=== PATIENT | female | born 1985 | race Caucasian/White ===

== ENCOUNTER → 2017-09-11 12:28 | Outpatient (CLI) | payer OTHER, SELFPAY ==
--- NOTE | 2017-09-11 14:03 | NEURO ---
NCS and/or EMG Patient Report DATE OF SERVICE: 09/11/17 Sabra Segal is a 32-year-old female presents for electrodiagnostic examination of the left upper and left lower limb. She has a chief complaint of numbness and tingling in both arm and leg. Electrodiagnostic findings: Left median motor nerve demonstrates normal distal latency, amplitude and conduction velocity. Normal left ulnar motor response normal left peroneal and tibial motor responses. F waves and H reflexes are normal. Sensory responses in both the left arm and left leg are within normal limits. This includes testing of the left lateral femoral cutaneous nerve. On needle EMG, all muscles tested in the left upper and lower limb show no evidence of denervation with normal motor unit action potentials. Electrodiagnostic impression: This is a normal electrodiagnostic study of the left arm and left leg. There is no electrodiagnostic evidence for peripheral neuropathy, including carpal tunnel or cubital tunnel syndrome. There is no electrodiagnostic evidence for meralgia paresthetica. If there are any further questions, please do not hesitate to contact me.
== END ==
DX: R20.2 Paresthesia of skin (principal)
CPT/HCPCS: 95886; 95913

== ENCOUNTER → 2018-04-11 17:04 | Outpatient (CLI) | payer OTHER, SELFPAY ==
[2018-04-11 17:20] LABS: Absolute Neutrophil Count 3.9 X10^3/uL (2.0-7.7); Basophil# 0.01 X10^3/uL; Basophil% 0.2 % (0-1); Eosinophil# 0.03 X10^3/uL; Eosinophils% 0.5 % (0-5); Hematocrit 38.6 % (37-47); Hemoglobin 13.1 g/dl (12.0-15.0); Lymphocyte % 29.6 % (19-41); Mean Corp Hgb Conc 33.9 g/gl (32-36); Mean Corpuscular Volume 88.5 fL (81-99); Mean Platelet Vol. 10.3 fl (6.2-12.0); Monocyte# 0.36 X10^3/uL; Monocyte% 5.9 % (0-10); Neutrophil # 3.88 X10^3/uL (2.7-7.7); Neutrophil % 63.8 % (47-70); Platelet Count 209 K/mm3 (150-450); RBC Distribution Width CV 13.3 % (11.6-14.6); RBC Distribution Width SD 42.5 fl (35.1-43.9); Red Blood Count 4.36 M/mm3 (4.2-5.4); White Blood Count 6.1 K/mm3 (4.4-11.0)
[2018-04-11 17:23] LABS: POSITIVE COUNT NO; POSITIVE DIFFERENTIAL NO; POSITIVE MORPHOLOGY NO
== END ==
DX: D72.819 Decreased white blood cell count, unspecified (principal)
CPT/HCPCS: 85025

== ENCOUNTER → 2018-10-14 15:49 | Outpatient (CLI) | payer OTHER, SELFPAY ==
[2018-10-14 22:34] LABS: hCG Titer Quant., Serum 1 mIU/mL (<9 non-preg)
== END ==
DX: O03.9 Complete or unspecified spontaneous abortion without complication (principal)
CPT/HCPCS: 36415; 84702

== ENCOUNTER 2019-06-19 22:13 | Emergency (ER) | payer OTHER, SELFPAY ==
[2019-06-19 22:15] VITALS: BP 131/77; PULSE 84; RESP 20; TEMP 36.7; BMI 41.4
--- NOTE | 2019-06-19 22:45 | DCINST.ED_ITS ---
ED Disposition - Plan for ED Patient: Instructions: PHARYNGITIS, Strep (Confirmed) Referrals: [facility] Doctor,Out of [Primary Care Provider] -
--- NOTE | 2019-06-19 22:47 | ED.VISSUMM ---
- ER Visit Summary Date of Service: 06/19/19 Chief Complaint: Sore throat History of Present Illness: The patient is a 34 F presenting with sore throat. Patient states this started this morning. She has had painful swallowing but no difficulty swallowing. She did receive a flu shot this week. She denies fever. She has had mild rhinorrhea. Denies other complaints. 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 She states this was positive. Denies other complaints. Physical Examination: Vitals are stable. Patient is afebrile. Alert no acute distress. HEENT exam pharyngeal erythema and exudate. Uvula is midline. Neck is supple. No meningismus Lungs are clear and equal bilaterally. Heart is regular rate and rhythm. Extremities are unremarkable. Skin is warm and dry. No rash Remainder of exam is unremarkable. Emergency Department Course and Treatment: Patient was given Bicillin IM, Decadron. She is advised to follow-up with her primary care physician. Advised return to ED for worsening complaints. Disposition: Discharge home Impression: Pharyngitis This note was generated with [employer] dictation software. It may contain incorrect words, spelling, and punctuation that were not noted in review of the chart prior to signing ED Disposition - Plan for ED Patient: Instructions: PHARYNGITIS, Strep (Confirmed) Referrals: [facility] Doctor,Out of [Primary Care Provider] -
[2019-06-19] MEDS: dexAMETHasone 4 MG Tablet PO (22:54)
[2019-06-19] MEDS: Penicillin G Benzathine 1.2 MU/2 ML Syringe IM (22:54)
== END 2019-06-19 23:13 | disposition home or self-care (01) ==
LOC: ED 22:51
PROVIDERS: Emergency Provider Emergency Medicine
DX: J02.9 Acute pharyngitis, unspecified (principal)
CPT/HCPCS: 99283

== ENCOUNTER 2020-01-22 23:01 | Emergency (ER) | payer OTHER, SELFPAY ==
[2020-01-22 23:02] VITALS: BP 131/83; PULSE 108; RESP 18; TEMP 37.4; O2SAT 99; BMI 36.0
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
[2020-01-22] MEDS: Ketorolac 15 MG/ML Vial IM (23:35)
[2020-01-22 23:51] LABS: Mucous, Urine 0 SEEN /hpf (<or=2+)
[2020-01-22 23:53] LABS: Color, Urine Yellow (Yellow); Glucose, Dipstick Normal (Normal); Leukocyte Esterase-Dipstick 25 /ul (Negative); Nitrite-Dipstick Positive (Negative); Occult Blood-Urine 25 /ul (Negative); Protein-Dipstick 15 mg/dl (Negative); Urine Bilirubin Dipstick Negative (Negative); Urine Clarity Sl. Cloudy (Clear); Urine Urobilinogen Normal (Normal)
[2020-01-22 23:56] LABS: Internal QC Validated? YES +Cl - CLEAR BKGD; Pregnancy, Urine Negative Negative
[2020-01-22 23:58] LABS: Ketone-Dipstick 150 mg/dl (Negative)
[2020-01-23] LABS: Bacteria 3+ /hpf (None Seen); Squamous Epithelial Cells - UA 10-25 SEEN /hpf (5-10); White Blood Cells 25-50 SEEN /hpf (0-5)
[2020-01-23 00:01] LABS: Red Blood Cells-Urine 0-5 SEEN /hpf (0-5)
[2020-01-23] MEDS: 0.9% Normal Saline 1,000 ML 999 ML IV (00:42)
[2020-01-23] MEDS: Ceftriaxone 1 GM/50 ML BAG IV (00:49)
[2020-01-23 00:50] VITALS: BP 137/80; PULSE 96; RESP 16; TEMP 37.6; O2SAT 96
[2020-01-23 00:56] LABS: Absolute Lymphocyte Count 0.97 X10^3/uL (0.83-4.51); Absolute Neutrophil Count 7.4 X10^3/uL (2.0-7.7); Basophil# 0.02 X10^3/uL; Basophil% 0.2 % (0-1); Hematocrit 36.3 % (37-47); Hemoglobin 12.2 g/dL (12.0-15.0); Lymphocyte # 0.97 X10^3/ul (4.0); Lymphocyte % 10.6 % (19-41); Mean Corp Hgb Conc 33.6 g/dL (32-36); Mean Corpuscular Hgb 30.7 pg (27.0-32.0); Mean Corpuscular Volume 91.4 fL (81-99); Mean Platelet Vol. 10.1 fl (6.2-12.0); Monocyte# 0.68 X10^3/uL; Monocyte% 7.5 % (0-10); NRBC Flagged by Analyzer 0 % (0-5); Neutrophil # 7.42 X10^3/uL (2.7-7.7); Neutrophil % 81.4 % (47-70); Platelet Count 168 K/mm3 (150-450); RBC Distribution Width CV 13.2 % (11.6-14.6); RBC Distribution Width SD 44.2 fl (35.1-43.9); Red Blood Count 3.97 M/mm3 (4.2-5.4); White Blood Count 9.1 K/mm3 (4.4-11.0)
[2020-01-23 01:39] LABS: Anion Gap 7 (5-15); BUN 19 mg/dL (7-18); BUN/Creat Ratio 28.4 RATIO (10-20); Chloride 107 mmol/L (98-107); Creatinine, Serum 0.67 mg/dL (0.55-1.02); EST Glomerular Filtration Rate 107 mL/min (>60); Est Glom Filt Rate - Afr Amer 130 mL/min (>60); Estimated Creatinine Clearance 102.17 ml/min; Glucose 94 mg/dL (74-106); Potassium 3.9 mmol/L (3.5-5.1); Sodium Level 137 mmol/L (136-145)
[2020-01-23 01:56] VITALS: BP 128/66; PULSE 86; RESP 16; TEMP 37.2; O2SAT 99
== END 2020-01-23 02:35 | disposition home or self-care (01) ==
PROVIDERS: Emergency Provider Emergency Medicine
DX: N39.0 Urinary tract infection, site not specified (principal); M54.9 Dorsalgia, unspecified; E86.9 Volume depletion, unspecified; Z86.718 Personal history of other venous thrombosis and embolism
CPT/HCPCS: 80048; 81001; 81025; 85025; 96365; 96372; 99285; J7030; A4216

== ENCOUNTER → 2020-09-20 14:12 | Outpatient (CLI) | payer OTHER, SELFPAY ==
[2020-09-23 21:45] LABS: HPV APTIMA, High Risk Negative (Negative)
[2020-09-24 03:07] LABS: Chlamydia By Nucleic Acid AMP Negative (Negative)
[2020-09-24 08:45] LABS: Gonococcus By Nucleic Acid AMP Negative (Negative)
== END ==
PROVIDERS: Visit Provider Student in an Organized Health Care Education/Training Program
DX: Z12.4 Encounter for screening for malignant neoplasm of cervix (principal); Z11.3 Encounter for screening for infections with a predominantly sexual mode of transmission; Z32.01 Encounter for pregnancy test, result positive
CPT/HCPCS: 87491; 87591; 87624; 88175; G0145

== ENCOUNTER → 2020-09-28 11:43 | Outpatient (CLI) | payer OTHER, SELFPAY ==
[2020-09-28 13:45] LABS: Hematocrit 36.7 % (37-47); Hemoglobin 12.3 g/dL (12.0-15.0); Mean Corp Hgb Conc 33.5 g/dL (32-36); Mean Corpuscular Hgb 30.1 pg (27.0-32.0); Mean Platelet Vol. 10.4 fl (6.2-12.0); Platelet Count 161 K/mm3 (150-450); RBC Distribution Width CV 13.1 % (11.6-14.6); Red Blood Count 4.08 M/mm3 (4.2-5.4); White Blood Count 3.5 K/mm3 (4.4-11.0)
== END ==
PROVIDERS: Visit Provider Student in an Organized Health Care Education/Training Program
DX: O20.0 Threatened abortion (principal); Z3A.00 Weeks of gestation of pregnancy not specified
CPT/HCPCS: 36415; 85027; 86850; 86900; 86901

== ENCOUNTER → 2020-10-10 14:39 | Outpatient (CLI) | payer OTHER, SELFPAY ==
[2020-10-10 18:23] LABS: hCG Titer Quant., Serum 2619 mIU/mL (1-3)
== END ==
PROVIDERS: Visit Provider Student in an Organized Health Care Education/Training Program
DX: N91.2 Amenorrhea, unspecified (principal)
CPT/HCPCS: 36415; 84702

== ENCOUNTER → 2020-10-12 11:54 | Outpatient (CLI) | payer OTHER, SELFPAY ==
[2020-10-12 15:10] LABS: hCG Titer Quant., Serum 1394 mIU/mL (1-3)
[2020-10-16 12:52] LABS: Beta-2-Microglobulin, S 1.4 mg/L (0.6-2.4)
[2020-10-16 16:06] LABS: Dilute Prothrombin Time (dPT) 36.4 sec (0.0-55.0); Dilute Russell Viper Venom 32.1 sec (0.0-47.0); Thrombin Time 16.6 sec (0.0-23.0); dPT Confirm Ratio 0.91 Ratio (0.00-1.40)
[2020-10-17 08:51] LABS: Anti-Cardiolipin Ab, IgG, Qn < 9 GPL U/mL (0-14); Anti-Cardiolipin Ab, IgM, Qn 19 MPL U/mL (0-12); Interpretation Comment: (.)
== END ==
PROVIDERS: Visit Provider Student in an Organized Health Care Education/Training Program
DX: N96 Recurrent pregnancy loss (principal); O03.9 Complete or unspecified spontaneous abortion without complication
CPT/HCPCS: 36415; 82232; 84702; 86147; 87077; 87086; 87088; 87186

== ENCOUNTER → 2020-10-19 14:47 | Outpatient (CLI) | payer OTHER, SELFPAY ==
[2020-10-19 16:29] LABS: hCG Titer Quant., Serum 235 mIU/mL (1-3)
== END ==
PROVIDERS: Visit Provider Student in an Organized Health Care Education/Training Program
DX: O20.0 Threatened abortion (principal); Z3A.00 Weeks of gestation of pregnancy not specified
CPT/HCPCS: 36415; 84702

== ENCOUNTER → 2020-10-26 15:18 | Outpatient (CLI) | payer OTHER, SELFPAY ==
[2020-10-26 16:01] LABS: hCG Titer Quant., Serum 35 mIU/mL (1-3)
== END ==
PROVIDERS: Visit Provider Student in an Organized Health Care Education/Training Program
DX: O20.0 Threatened abortion (principal); Z3A.00 Weeks of gestation of pregnancy not specified
CPT/HCPCS: 36415; 84702

== ENCOUNTER → 2020-11-01 12:04 | Outpatient (CLI) | payer OTHER, SELFPAY ==
[2020-11-01 13:52] LABS: hCG Titer Quant., Serum 7 mIU/mL (1-3)
== END ==
PROVIDERS: Visit Provider Student in an Organized Health Care Education/Training Program
DX: O03.9 Complete or unspecified spontaneous abortion without complication (principal)
CPT/HCPCS: 36415; 84702

== ENCOUNTER → 2021-01-17 16:37 | Outpatient (CLI) | payer OTHER, SELFPAY ==
[2021-01-20 08:28] LABS: Anti-Cardiolipin Ab, IgG, Qn < 9 GPL U/mL (0-14); Anti-Cardiolipin Ab, IgM, Qn 16 MPL U/mL (0-12)
== END ==
PROVIDERS: Visit Provider Student in an Organized Health Care Education/Training Program
DX: N96 Recurrent pregnancy loss (principal)
CPT/HCPCS: 36415; 86147

== ENCOUNTER → 2021-01-20 16:23 | Outpatient (CLI) | payer OTHER, SELFPAY ==
[2021-01-20 17:04] LABS: hCG Titer Quant., Serum 138 mIU/mL (1-3)
== END ==
PROVIDERS: Visit Provider Obstetrics & Gynecology
DX: N91.2 Amenorrhea, unspecified (principal)
CPT/HCPCS: 36415; 84702

== ENCOUNTER → 2021-01-23 14:41 | Outpatient (CLI) | payer OTHER, SELFPAY ==
[2021-01-23 17:11] LABS: hCG Titer Quant., Serum 206 mIU/mL (1-3)
== END ==
PROVIDERS: Visit Provider Obstetrics & Gynecology
DX: N91.2 Amenorrhea, unspecified (principal)
CPT/HCPCS: 36415; 84702

== ENCOUNTER 2021-01-24 13:53 | Inpatient (IN) | payer OTHER, SELFPAY ==
[2021-01-24] VITALS (9 sets, daily range): BP systolic 92–114; BP diastolic 48–67; PULSE 64–114; RESP 16–20; TEMP 36.1–36.7; O2SAT 96–100; BMI 34.4; BMI 38.0
[2021-01-24 14:18] LABS: Hematocrit 36.4 % (37-47); Hemoglobin 12.1 g/dL (12.0-15.0); Mean Corp Hgb Conc 33.2 g/dL (32-36); Mean Corpuscular Hgb 30.2 pg (27.0-32.0); Mean Corpuscular Volume 90.8 fL (81-99); Platelet Count 189 K/mm3 (150-450); RBC Distribution Width CV 13.2 % (11.6-14.6); RBC Distribution Width SD 43.4 fl (35.1-43.9); Red Blood Count 4.01 M/mm3 (4.2-5.4); White Blood Count 7.5 K/mm3 (4.4-11.0)
[2021-01-24 14:35] LABS: hCG Titer Quant., Serum 166 mIU/mL (1-3)
--- NOTE | 2021-01-24 14:45 | EDS_ITS ---
HPI History of Present Illness Chief Complaint: Abd Pain Detail of Chief Complaint: Patient presents with abdominal pain that started around 10:30 AM this morn Informant: patient Narrative Narrative: Patient presents to the emergency department from Dr. Rojas's office. Patient apparently has a ruptured ectopic and we were asked the see the patient to start an IV and fluids and patient will go to the OR. Patient states that she last had a menstrual period January 10 and has been having quant serially that are not doubling. She started having pain this morning around 10:30 PM. Patient just recently started having small amount of vaginal bleeding. Patient currently rates her pain an 8 out of 10. She has had no vomiting. She denies any fevers. Patient is G3, P0. Prior similar symptoms: No PFSH PFSH Home Medications norethindrone (contraceptive) 0.35 mg PO DAILY 01/22/20 [History Last Taken Unknown] cephalexin 500 mg PO Q12 #14 cap 01/23/20 [Rx Last Taken Unknown] naproxen 500 mg PO BID #14 tab 01/23/20 [Rx Last Taken Unknown] Allergy/AdvReac Type Severity Reaction Status Date / Time No Known Allergies Allergy Verified 06/19/19 22:13 Social History Smoking Status: Never smoker ROS ROS ED Constitutional Constitutional ED: Reports systems reviewed and no addt'l complaints, except as documented; Denies body ache(s), change in weight or chills Eyes Eyes: Denies acute decrease in peripheral vision, change in vision, double vision or loss of vision ENT ENT ED: Reports none; Denies ear pain, lip swelling, loss taste/smell, neck pain, otalgia or sore throat Cardiovascular Cardiovascular: Reports none; Denies abdominal pain, chest pain with activity, leg edema, lightheadedness, palpitations, rapid heart rate or syncope Respiratory/Chest Respiratory/Chest: Reports none; Denies change in mental status, dry cough, dyspnea, hemoptysis, shortness of breath at rest or shortness of breath with exertion Gastrointestinal Gastrointestinal: Reports abdominal pain Genitourinary Genitourinary ED: Reports other Details: Vaginal bleeding Musculoskeletal Musculoskeletal: Reports none; Denies arthralgias, back pain, difficulty walking, extremity pain, muscle weakness or myalgias Integumentary Reports none; Denies abscess or rash Neurologic Neurologic: Reports none; Denies abnormal gait, confusion, focal weakness, frequent falls, headache(s), loss of vision, numbness, paresthesias, radicular pain, vertigo or weakness Psychiatric Psychiatric: Reports systems reviewed and no addt'l complaints, except as documented and none; Denies behavioral changes, confusion, difficulty concentrating, hallucinations, suicidal ideation, tactile hallucinations or visual hallucinations Endocrine Endocrinology: Denies none, cold intolerance, excessive sweating, fatigue or heat intolerance Hematologic/Lymphatic Hematologic/Lymphatic: Reports none; Denies anemia, easy bleeding or easy bruising Allergic/Immunologic Allergic/Immunologic ED: Denies as per HPI, none, lip swelling, mouth swelling, throat swelling, tongue swelling or hives EXAM Physical Exam Const Positive well nourished and well developed General Appearance ED: well developed and NAD HEENT Reports TM's clear and moist mucous membranes normocephalic and atraumatic; Negative for trauma or tenderness Tympanic Membrane ED: Yes TM's clear Eyes PERRL and EOMs intact bilaterally General Eye ED: Negative for pale conjunctiva or scleral icterus Neck no lymphadenopathy, supple and no JVD General: Negative for tenderness Chest Wall inspection of chest normal and palpation of chest normal Chest: Negative for tenderness Resp normal respiratory effort and clear to auscultation bilaterally Effort and Inspection: Negative for respiratory distress or pain with movement Auscultation: Negative for rhonchi, wheezes or diminished lung sounds Cardio regular rate, regular rhythm, S1 normal heart sound, S2 normal heart sound and no murmurs Peripheral Pulses: pulses 2+ throughout GI normal to inspection, nondistended, normoactive bowel sounds, soft to palpation, non-distended and no masses GI Narrative: Patient has diffuse tenderness palpation over the right lower quadrant as well as the suprapubic and left lower quadrant regions. There are some mild guarding. There is no rebound, rigidity, or peritoneal signs. Palpation: tender suprapubic Back/Spine no CVA tenderness and no thoracic nor lumbar tenderness Extremity normal to inspection General Extremety ED: Negative for edema General Extremity: Negative for edema Neuro oriented x3, CN's II-XII intact bilaterally, no sensory deficits noted and gait normal Sensorium / Orientation: awake, alert, oriented to person, oriented to place and oriented to time Motor Exam: strength 5/5 throughout and strength abnormal Psych mental status grossly normal Skin no rashes or lesions noted and no wounds MDM MDM MDM Narrative Medical decision making narrative: IV line established on arrival. I alerted the surgical services coordinator. Patient will be taken to the operating room by Dr. Rojas. Lab Data Attestation: I reviewed the patient's lab results. Labs: Laboratory Results - last 24 hr 01/24/21 01/24/21 13:56 13:56 WBC 7.5 RBC 4.01 L Hgb 12.1 Hct 36.4 L MCV 90.8 MCH 30.2 MCHC 33.2 RDW Std Deviation 43.4 RDW Coeff of Hollis 13.2 Plt Count 189 MPV 10.0 HCG, Quant 166 H Discharge Plan Triage Chief Complaint: Abd Pain ED Provider: Grabiel Ruiz Dx/Rx/DC Orders Clinical Impression: Ruptured ectopic Prescriptions: No Action norethindrone (contraceptive) 0.35 MG tablet 0.35 mg PO DAILY RF: 0 cephalexin 500 MG capsule 500 mg PO Q12 Qty: 14 RF: 0 naproxen 500 MG tablet 500 mg PO BID Qty: 14 RF: 0 Primary Care Provider: Tim Lowe Referrals: Tim Lowe MD [Primary Care Provider] - Disposition Disposition: Acute Care [facility]
[2021-01-24] MEDS: Lactated Ringers 1,000 ML 125 ML IV ×2 (14:58→21:33)
[2021-01-24] MEDS: Morphine 4 MG/ML Syringe IV (14:58)
[2021-01-24] MEDS: Ondansetron 4 MG/2 ML Vial IV (14:58)
--- NOTE | 2021-01-24 16:30 | FAL_PTH ---
PATIENT: VERÓNICA LING LOC: MS3 U#:[id number] AGE/SX: 35/F ROOM: WA314 RE01/25/[address]: Dr. Rodrigo Rojas MD : 1985 BED: 1 DIS: 01/26/2021 SPEC #: [id number] RECD: 01/25/21 06:52 STATUS: SHAWNA MILLER #: [id number] MAGALY: 01/24/21 16:[address]: Rodrigo Rojas DEPT: SURGICAL PATHOLOGY RECD BY: Nigel Neil ENTERED: 01/25/21 12:04 SP TYPE: ECTOPIC OTHR DR: Dr. Tim Lowe MD Tissues: ECTOPIC PREG Procedures: Surgery Specimen Level IV HEADER OPERATION: Laparoscopic removal ectopic , right salpingectomy PRE-OP DIAGNOSIS: Ectopic TISSUE SUBMITTED: Right fallopian tube MICROSCOPIC DIAGNOSIS Right fallopian tube, salpingectomy: Fallopian tube with decidua and immature chorionic villi (ectopic ). MAYDA:sharee 01/26/2021 MICROSCOPIC DESCRIPTION Slides are reviewed. GROSS DESCRIPTION Received in fixative is one container labeled with the patient's name and designated right fallopian tube. The specimen consists of a dilated fallopian tube measuring 6 cm in length and up to 1.5 cm in diameter. The fimbrial end is identified. A few blood clots are noted at the fimbrial end. The specimen is totally submitted in one cassette. / MAYDA:sharee 01/25/21 TC:5 CPT: 29044
--- NOTE | 2021-01-24 16:59 | PCM.HP.BLA ---
History and Physical Date of Admission: 01/24/21 Chief complaint: Abdominal pain History of present illness: 35-year-old G4, P0 found to have inappropriately rising hCG with abdominal pain suspicion for ectopic . Patient denies headache, chest pain, shortness of breath, nausea vomiting. 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 Medications: vitamin Past surgical history: Denies Allergies: No known drug allergies Social history: Denies smoking, alcohol use, drug use Review of systems: Besides above pertinent positives a full review of systems was performed and found to be negative Physical exam: Vital signs: Blood pressure 101/67 pulse 74 respiratory rate 16 SPO2 99% on room air temperature 97.9 General: Mild distress, very uncomfortable HEENT: Normocephalic atraumatic Cardiac/respiratory: Nonlabored breathing, no use of accessory muscles Abdomen: Soft, moderately tender in lower quadrants negative for rebound tenderness negative for guarding, nondistended Extremities: No peripheral edema normal peripheral pulses Psych: Normal affect normal demeanor nonpressured speech Labs: White blood cell count 7.5, hemoglobin 12.1, hematocrit 36.4%, platelets 189. Blood type B+ antibody negative Assessment plan: 35-year-old G4, P0 with inappropriately rising hCG today with abdominal pain and ultrasound findings suspicious for ectopic . Educated patient on findings, for diagnostic laparoscopy, removal of ectopic , possible salpingectomy possible oophorectomy. Patient with history of DVT, will consider Lovenox for 4 to 6 weeks postoperatively. Discussed case with anesthesia and surgical team.
--- NOTE | 2021-01-24 19:04 | OP.PCM_ITS ---
Report of Operation Date of Procedure: 01/24/21 Pre-Operative Diagnosis: Suspected ectopic Post-Operative Diagnosis: Right fallopian tube ectopic Surgery/Procedure Performed:: Diagnostic laparoscopy right salpingectomy, removal of ectopic Description of Surgical Findings:: Surgeon: Rodrigo Rojas Anesthesia: General EBL: 100 cc Urine output: 250 cc IV fluids: 1000 cc Complications: None Specimen: Right fallopian tube and ectopic Findings: Moderate amount of blood in the pelvis. Right fallopian tube severely dilated with signs of ectopic tissue. Right ovary within normal limits. Left lipping tube and ovary within normal limits. 3 cm anterior fibroid noted. Mild to moderate amount of pelvic and abdominal adhesions noted. Consent: Patient with inappropriately rising hCG, abdominal pain, and ultrasound findings suspicious for ectopic . Patient need of diagnostic laparoscopy, removal of ectopic . Patient understands the risk of the procedure include but are not limited to visceral or vascular injury, prolonged hospitalization, blood loss need for transfusion, reoperation. Patient state understanding wished to proceed. All questions answered consent was signed. Procedure: Patient was brought back to the OR where general anesthesia found to be adequate. Patient was prepared and draped in dorsolithotomy position with yellowfin stirrups. Weighted speculum placed in the posterior aspect of the vagina, cervical dilators were used to dilate the cervix, and uterine manipulator was placed. Varies needle was inserted at the umbilicus, water safety test was passed, abdomen was insufflated. 5 mm midline infraumbilical fold incision was made and 5 mm trocar was inserted under direct visualization. Laparoscope was inserted and above findings were noted. Left lower quadrant 5 mm trocar was inserted under direct visualization. Right lower quadrant 12 mm trocar was inserted under direct visualization. Suction family service aide was used to evacuate the pelvis. Using an atraumatic grasper and a LigaSure device the right fallopian tube was identified to the fimbriae and the mesosalpinx was cut and cauterized. Endo Catch bag was inserted and right fallopian tube was removed and sent to pathology. Incision was reinspected and good hemostasis noted. No further pathology noted. 12 mm trocar was removed and Endo fascial closure device was used to close the fascia under direct visualization. Abdomen was desufflated and trochars were removed under direct visualization. Good hemostasis noted. Skin was closed in a subcuticular fashion at all trocar sites. Good hemostasis noted. All counts correct x2. Patient tolerated procedure well was brought to recovery in stable condition. web machine tender: Ralph Soto
--- NOTE | 2021-01-24 19:11 | PCM.DC ---
Discharge Instructions Diet Discharge Diet: No restrictions Activity Discharge Activity: Return to Normal Activity, May Drive and May Shower May resume sexual activity in: 4-6 weeks Lifting Restrictions: No lifting over 25 pounds for 2 to 3 weeks Dressing / Incision Call your doctor if your incision/area has: Continuous Slow Oozing and Foul Smelling Discharge Call your doctor if you observe: Fever of 101 or Higher, Shortness of breath and Chest pain Follow Up Care Please Follow Up With: Rodrigo Rojas MD When: Follow-up 2 weeks postoperatively Test Results: Test results from this visit will be discussed in further detail at your follow-up appointment, if applicable. Discharge Plan Admission Attending Provider: Rodrigo Rojas Primary Care Provider: Tim Lowe Discharge Orders/Prescriptions Prescriptions: New oxycodone 5 mg Tablet 5 mg PO Q6H PRN PRN (Reason: Pain Score 4-10/10) 3 Days Qty: 12 RF: 0 Referrals / Follow Up: Tim Lowe MD [Primary Care Provider] - Disposition Disposition (needs filled in before D/C Order can be placed): Home, Self Care
[2021-01-24] MEDS: Acetaminophen 500 MG Tablet 1000 MG PO (20:45)
[2021-01-24] MEDS: oxyCODONE 5 MG Tablet PO ×2 (20:45→21:31)
[2021-01-24] MEDS: Ketorolac 30 MG/ML Syringe IV (22:49)
[2021-01-24] MEDS: Docusate Sodium 100 MG Capsule PO (22:49)
[2021-01-25] VITALS (11 sets, daily range): BP systolic 74–98; BP diastolic 35–57; PULSE 60–99; RESP 16–18; TEMP 36.4–36.9; O2SAT 94–99
[2021-01-25] MEDS: Ondansetron ODT 4 MG Tablet PO ×2 (00:49→07:39)
[2021-01-25] MEDS: Acetaminophen 500 MG Tablet 1000 MG PO ×4 (03:16→20:51)
[2021-01-25] MEDS: oxyCODONE 5 MG Tablet PO ×3 (03:35→20:51)
[2021-01-25] MEDS: Ketorolac 30 MG/ML Syringe IV ×4 (04:44→23:01)
[2021-01-25] MEDS: Lactated Ringers 1,000 ML 125 ML IV ×3 (04:47→22:01)
[2021-01-25 06:30] LABS: Hematocrit 26.4 % (37-47); Mean Corp Hgb Conc 34.1 g/dL (32-36); Mean Corpuscular Hgb 30.8 pg (27.0-32.0); Mean Corpuscular Volume 90.4 fL (81-99); Mean Platelet Vol. 9.9 fl (6.2-12.0); Platelet Count 175 K/mm3 (150-450); RBC Distribution Width SD 42.7 fl (35.1-43.9); Red Blood Count 2.92 M/mm3 (4.2-5.4); White Blood Count 7.6 K/mm3 (4.4-11.0)
[2021-01-25] MEDS: Docusate Sodium 100 MG Capsule PO ×2 (08:28→20:51)
--- NOTE | 2021-01-25 08:33 | PN.OBGYN_ITS ---
Subjective Subjective No overnight complaints. Pain well controlled. Objective Data Objective Data Vital Signs: Vital Signs Temp Pulse Resp BP Pulse Ox 98.1 F 63 16 95/57 L 95 01/25/21 06:26 01/25/21 06:26 01/25/21 06:26 01/25/21 06:26 01/25/21 06:26 Oxygen Delivery Method Room Air Weight: 201 lb Body Mass Index (BMI) 38.0 Intake & Output: Intake and Output for Last 24 Hours 01/23/21 01/24/21 01/25/21 23:59 23:59 23:59 Intake Total 822.92 / 1022.92 1504.17 / 1504.17 Output Total 275 / 275 300 / 300 Balance 547.92 / 747.92 1204.17 / 1204.17 Lab / Micro Data Result Diagrams: 01/25/21 06:04 Labs: Laboratory Results - last 24 hr 01/24/21 13:56: WBC 7.5, RBC 4.01 L, Hgb 12.1, Hct 36.4 L, MCV 90.8, MCH 30.2, MCHC 33.2, RDW Std Deviation 43.4, RDW Coeff of Hollis 13.2, Plt Count 189, MPV 10.0 01/24/21 13:56: HCG, Quant 166 H 01/24/21 13:56: Blood Type A POSITIVE, Antibody Screen NEGATIVE 01/25/21 06:04: WBC 7.6, RBC 2.92 L, Hgb 9.0 L, Hct 26.4 L, MCV 90.4, MCH 30.8, MCHC 34.1, RDW Std Deviation 42.7, RDW Coeff of Hollis 13.0, Plt Count 175, MPV 9.9 Micro: Microbiology 01/24/21 15:50 Mucosa - Nose SARS-CoV-2 Antigen (Rapid) - Final Physical Exam Const alert, oriented x3, no apparent distress and average body habitus HEENT normocephalic and moist oral mucous membranes Head and Scalp: atraumatic Face and Sinus: normal facial exam Eyes PERRL Neck full ROM Lymph Lymphatic: no lymphadenopathy noted Resp normal respiratory effort, no retractions and no use of accessory muscles GI normal to inspection, nondistended, normoactive bowel sounds GI Narrative: Laparoscopic incisions clean dry and intact Extremity normal to inspection, full ROM and no clubbing, cyanosis or edema Skin no rashes or lesions noted Psych mental status grossly normal, affect normal, speech normal and activity/motor behavior normal Assessment & Plan (1) Ruptured ectopic : PLAN: Postoperative day 1 status post diagnostic laparoscopy removal of ectopic right salpingectomy. Patient's pain well controlled. Educate d patient on wound care, lifting, driving, and work returning. Okay to discharge home today. History of factor V heterozygous and MTHFR heterozygous and history of unprovoked DVT to discharge home on Lovenox
[2021-01-25] MEDS: Enoxaparin 40 MG/0.4 ML Syringe SC (09:51)
--- NOTE | 2021-01-25 12:58 | NURSING ---
ambulated pt in halls. pt c/o slight lightheadedness. removed scop. patch
[2021-01-25 15:07] LABS: Hematocrit 25.6 % (37-47); Hemoglobin 8.5 g/dL (12.0-15.0)
--- NOTE | 2021-01-25 15:29 | PHA.DC.MC ---
Pharmacy Service has performed discharge medication reconciliation and counseling for this patient. 1. ENOXAPARIN 40MG SC DAILY 2. OXYCODONE 5MG PO Q6H PRN PAIN 4-10 The patient's discharge medication list was reviewed for discrepancies and discrepancies were resolved. Home Medications oxycodone 5 mg PO Q6H PRN PRN 3 Days #12 tab 01/24/21 enoxaparin 40 mg SUBCUT DAILY 42 Days #16.8 ml 01/25/21 The patient was counseled on the following discharge medications and changes in medications for homegoing were reviewed. The Reason for Use, instructions for use, and potential side effects were reviewed for all new medications. The patient's questions regarding all of their medications were answered. The patient was able to verbally demonstrate an understanding of their discharge medications.
[2021-01-25 19:04] LABS: Hematocrit 25.2 % (37-47); Hemoglobin 8.3 g/dL (12.0-15.0)
[2021-01-25] MEDS: 0.9% Saline Lock 10 ML Syringe IV (23:02)
[2021-01-26] MEDS: Acetaminophen 500 MG Tablet 1000 MG PO ×3 (02:36→14:26)
[2021-01-26 02:39] VITALS: BP 94/45; PULSE 70; RESP 16; TEMP 36.8; O2SAT 96
[2021-01-26] MEDS: 0.9% Saline Lock 10 ML Syringe IV (05:31)
[2021-01-26] MEDS: Ketorolac 30 MG/ML Syringe IV (05:31)
[2021-01-26 06:25] LABS: Absolute Neutrophil Count 2.6 X10^3/uL (2.0-7.7); Basophil# 0.01 X10^3/uL; Basophil% 0.2 % (0-1); Eosinophil# 0.01 X10^3/uL; Eosinophils% 0.2 % (0-5); Hemoglobin 7.8 g/dL (12.0-15.0); Lymphocyte % 40.1 % (19-41); Mean Corp Hgb Conc 32.5 g/dL (32-36); Mean Corpuscular Hgb 30.2 pg (27.0-32.0); Mean Platelet Vol. 10.1 fl (6.2-12.0); Monocyte# 0.33 X10^3/uL; Monocyte% 6.6 % (0-10); NRBC Flagged by Analyzer 0 % (0-5); Neutrophil # 2.62 X10^3/uL (2.7-7.7); Neutrophil % 52.5 % (47-70); Platelet Count 125 K/mm3 (150-450); RBC Distribution Width CV 13.5 % (11.6-14.6); RBC Distribution Width SD 45.6 fl (35.1-43.9); Red Blood Count 2.58 M/mm3 (4.2-5.4)
--- NOTE | 2021-01-26 07:47 | PCM.PN.OB ---
Subjective Subjective Patient much improved. Pain improving, feels bloated and gassy. Objective Data Objective Data Vital Signs: Vital Signs Temp Pulse Resp BP Pulse Ox 98.2 F 70 16 94/45 L 96 01/26/21 02:39 01/26/21 02:39 01/26/21 02:39 01/26/21 02:39 01/26/21 02:39 Oxygen Delivery Method Room Air Weight: 201 lb Body Mass Index (BMI) 38.0 Intake & Output: Intake and Output for Last 24 Hours 01/24/21 01/25/21 01/26/21 23:59 23:59 23:59 Intake Total 822.92 / 1022.92 4560.42 / 4560.42 1193.75 / 1193.75 Output Total 275 / 275 2500 / 2500 450 / 450 Balance 547.92 / 747.92 2060.42 / 2060.42 743.75 / 743.75 Lab / Micro Data Result Diagrams: 01/26/21 06:10 Labs: Laboratory Results - last 24 hr 01/25/21 14:55: Hgb 8.5 L, Hct 25.6 L 01/25/21 18:38: Hgb 8.3 L, Hct 25.2 L 01/26/21 06:10: WBC 5.0, RBC 2.58 L, Hgb 7.8 L, Hct 24.0 L, MCV 93.0, MCH 30.2, MCHC 32.5, RDW Std Deviation 45.6 H, RDW Coeff of Hollis 13.5, Plt Count 125 L, MPV 10.1, Immature Gran % (Auto) 0.400, Neut % (Auto) 52.5, Lymph % (Auto) 40.1, Humphreys % (Auto) 6.6, Eos % (Auto) 0.2, Baso % (Auto) 0.2, Absolute Neuts (auto) 2.6, Absolute Lymphs (auto) 2.00, Nucleated RBC % 0 Micro: Microbiology 01/24/21 15:50 Mucosa - Nose SARS-CoV-2 Antigen (Rapid) - Final Physical Exam Const alert, oriented x3, no apparent distress, average body habitus and healthy appearing HEENT normocephalic and moist oral mucous membranes Head and Scalp: atraumatic Face and Sinus: normal facial exam Eyes PERRL Neck full ROM and no lymphadenopathy Lymph Lymphatic: no lymphadenopathy noted Resp normal respiratory effort, no retractions and no use of accessory muscles GI normal to inspection, nondistended, normoactive bowel sounds GI Narrative: Laparoscopic incisions clean dry and intact. Extremity normal to inspection, full ROM and no clubbing, cyanosis or edema Psych mental status grossly normal, affect normal, speech normal and activity/motor behavior normal Assessment & Plan (1) Ruptured ectopic : PLAN: Postop day 2 status post laparoscopic removal of ectopic right salpingectomy. Acute blood loss anemia, discussed with nursing yesterday borderline hypotension and dizziness with ambulating. At that time negative orthostatics. Discussed with patient about blood transfusion yesterday patient declined. This morning hemoglobin repeated overall stable. Patient feeling much improved this morning still desires expectant management. If feeling improved and can ambulate we will continue to discharge home. Borderline hypotension but pulse stable. Follow-up within a week
[2021-01-26 08:05] VITALS: BP 94/50; PULSE 78; RESP 16; TEMP 36.8; O2SAT 98
[2021-01-26 08:20] VITALS: O2SAT 96
[2021-01-26] MEDS: Enoxaparin 40 MG/0.4 ML Syringe SC (09:06)
[2021-01-26] MEDS: Docusate Sodium 100 MG Capsule PO (09:06)
--- NOTE | 2021-01-26 10:32 | CASEMGMT ---
Social Work Note CHARU reviewed chart. Pt with Ectopic and with recent miscarriage in September 2020. SW in to speak with pt. SW introduced self and role at [facility]. Pt is alert and orientated, engages in conversation appropriately. Pt states she has had 3-4 pregnancies. Pt states her first was an and she has lost the other pregnancies. SW offered support to pt. Pt states this she had already suspected she was going to lose, pt states she was only a few weeks along. Pt states the last she had she was about 6-7 weeks along and that was more unexpected of losing that one than the most recent one. Pt states the last two pregnancies she was trying to get . Pt states she lives with her boyfriend who is supportive and also states she has additional family and friends that are supportive. Pt states no history of mental health and states no current symptoms of anxiety or depression. SW offered to provide pt with lost resources and pt denied. Pt denied additional needs or concerns at this time. Faye Farias MAINFRAME ANALYST, WAX BALL MOLDER
[2021-01-26 11:42] VITALS: BP 90/46; PULSE 90; RESP 16; TEMP 36.8; O2SAT 97
--- NOTE | 2021-01-26 11:50 | CASEMGMT ---
RN CM WELDING SYSTEMS AND EQUIPMENT REPAIRER CM to room to meet with patient for initial transition planning/care coordination assessment. RN YURI introduced self and role at [facility]. Pt voices understanding and consents to assessment at this time. Pt sitting up in recliner chair in room in no distress at this time. Pt is A/O at this time and answers all questions appropriately. Care providers, pharmacy, and demographics verified/updated at this time. PCP: [facility]. Was seeing Dr Tim Lowe there, but he moved to [facility] office and pt is not sure who she will be seeing now. Specialists:none Preferred Pharmacy: [facility] Retail Insurance:[facility] [employer] Prescription Benefit: Yes Living Will/HPOA: Pt does not currently have LW/HCPOA and declines info at this time. Pt made aware that she can contact as an out-pt and make appt in the future if she decides she would like to talk with someone about this or would like to utilize [facility] social work for advanced directive completion. LNOK: [place] Living Arrangements: Lives w/her BF. Independent. Transportation: Pt states drives self and states no transportation concerns at this time. DME: Denies using any DME and denies needs. Pt wishes to return home and states has no concerns with going home at time of discharge. CM to follow for any discharge planning/needs. Pt voices no concerns/needs at this time. Advised pt to ask for CM if any questions/concerns/needs arise. Voices understanding. PLAN: Home w/mother and BF support and discharge plans in place. Aziza CHING RN, CM
--- NOTE | 2021-01-26 14:00 | PCM.DC.BLA ---
Discharge Summary Date of Admission: 01/24/21 Date of Discharge: 01/26/21 Summary: Patient was seen in office and noted to have suspicion for ectopic with inappropriately rising hCG and ultrasound findings with suspicion for ectopic . Patient was sent to the ER, ER was called and notified to fast track to the OR. Patient was brought back to the OR on 01/24/2021 for diagnostic laparoscopy removal of ectopic , right salpingectomy. Found to have fallopian tube ectopic and right fallopian tube. Patient with acute blood loss anemia found to have symptomatic anemia, discussed blood transfusion patient declined. Overall vital signs improved and patient symptoms resolved postoperative day 2, hemoglobin remained stable. Okay to discharge home on 01/26/2021 Physical Exam Const alert, no apparent distress, average body habitus and no limitations HEENT normocephalic Eyes PERRL Neck full ROM, nuchal rigidity and no lymphadenopathy Resp normal respiratory effort, normal air movement, no retractions and no use of accessory muscles GI normal to inspection, nondistended, normoactive bowel sounds GI Narrative: Laparoscopic incisions clean dry and intact Extremity normal to inspection, full ROM and normal capillary refill Psych mental status grossly normal, thought process normal, cooperative, affect normal, speech normal and activity/motor behavior normal Meaningful Use Info Meaningful Use Diagnoses (Choose all that apply): None applicable Discharge Plan Admission Admit Date/Time: 01/25/21 16:39 Primary Reason for Your Visit: Ectopic Attending Provider: Rodrigo Rojas Primary Care Provider: Tim Lowe Discharge Orders/Prescriptions Prescriptions: New oxycodone 5 mg Tablet 5 mg PO Q6H PRN PRN (Reason: Pain Score 4-10/10) 3 Days Qty: 12 RF: 0 enoxaparin 40 mg/0.4 mL Syringe 40 mg subcut DAILY 42 Days Qty: 16.8 RF: 1 Referrals / Follow Up: Tim Lowe MD [Primary Care Provider] - Disposition Disposition (needs filled in before D/C Order can be placed): Home, Self Care
== END 2021-01-26 16:14 | disposition home or self-care (01) | DRG 819 ==
LOC: SDC 14:04 → ED 14:16 → SDC 15:04 → AC 15:07 → MS3 19:04 → SDC 01-26 09:35 → MS3 01-26 09:35
PROVIDERS: Admitting Provider Obstetrics & Gynecology; Emergency Provider Emergency Medicine; Referring Provider Obstetrics & Gynecology; Visit Provider Obstetrics & Gynecology
PROC: 10T24ZZ Resection of Products of Conception, Ectopic, Percutaneous Endoscopic Approach (ICD-10-PCS; CPT 59150; principal; 2021-01-24 16:15)
DX: O00.101 Right tubal pregnancy without intrauterine pregnancy (principal); K66.0 Peritoneal adhesions (postprocedural) (postinfection); O26.20 Pregnancy care for patient with recurrent pregnancy loss, unspecified trimester; Z86.718 Personal history of other venous thrombosis and embolism; Z3A.00 Weeks of gestation of pregnancy not specified
CPT/HCPCS: 36415; 84702; 85014; 85018; 85025; 85027; 86850; 86900; 86901; 87426; 88305; 99251; 99285; J7030; J7120; A4216; G0463; J2405

== ENCOUNTER 2021-05-26 12:28 | Day surgery (SDC) | payer OTHER, SELFPAY ==
[2021-05-26 13:05] LABS: Hematocrit 34.5 % (37-47); Hemoglobin 11.7 g/dL (12.0-15.0); Mean Corp Hgb Conc 33.9 g/dL (32-36); Mean Corpuscular Hgb 29.8 pg (27.0-32.0); Platelet Count 171 K/mm3 (150-450); RBC Distribution Width CV 13.4 % (11.6-14.6); RBC Distribution Width SD 42.8 fl (35.1-43.9); Red Blood Count 3.92 M/mm3 (4.2-5.4); White Blood Count 3.9 K/mm3 (4.4-11.0)
[2021-05-26 13:16] LABS: Prothrombin Time (Protime)PT. 12.6 SECONDS (11.7-14.9)
[2021-05-26 13:17] LABS: Partial Thromboplast Time 29.9 Seconds (24.1-36.2)
[2021-05-26 13:46] LABS: ALB/GLOB Ratio 0.9 RATIO (0.9-2.4); AST(SGOT) 15 U/L (15-37); Alanine Aminotransfer ALT/SGPT 22 U/L (13-56); Albumin, Serum 3.7 g/dL (3.2-5.0); Alkaline Phosphatase 46 U/L (45-117); Anion Gap 5 (5-15); BUN 11 mg/dL (7-18); Calcium,Total 8.9 mg/dL (8.5-10.1); Chloride 108 mmol/L (98-107); Creatinine, Serum 0.69 mg/dL (0.55-1.02); EST Glomerular Filtration Rate 103 mL/min (>60); Est Glom Filt Rate - Afr Amer 124 mL/min (>60); Glucose 87 mg/dL (74-106); Potassium 3.6 mmol/L (3.5-5.1); Protein, Total 7.7 g/dL (6.4-8.2); Sodium Level 138 mmol/L (136-145)
[2021-05-26 13:49] LABS: hCG Titer Quant., Serum 715 mIU/mL (1-3)
[2021-05-26 16:00] VITALS: BP 114/68; PULSE 86; RESP 16; TEMP 36.8; O2SAT 100; BMI 33.4
[2021-05-26] MEDS: Lactated Ringers 1,000 ML 125 ML IV (16:06)
--- NOTE | 2021-05-26 16:57 | HP.PCM.OB_ITS ---
History and Physical Date of Admission: 05/26/21 Surgical History and Physical Date: 05/26/2021 Name: VERÓNICA LING Age: 36 Date of : 1985 Verónica Ling, a 36 year old female 0 0 4 0 0, presents for on at . -- Verónica is here today for missed menses appointment. . Patient states that most recent was in January and was ectopic and she has Rt salpingectomy. Patient states that she started with bleeding beginning of the week. She notes that she passed a clot this morning. MEDICATIONS HISTORY: ALLERGIES: No Known Allergies Infections - Chicken pox and [place] Illnesses - none Accidents - no injuries of consequence Hospitalizations - see surgery Review of Systems: GENERAL - Denies fever, or chills SKIN - Denies skin changes EYES - wears eye glasses and doesn't always wear EARS - Denies difficulty hearing NOSE - Denies nasal congestion or bleeding MOUTH - Denies sore throat or difficulty swallowing NECK - Denies pain or swelling RESPIRATORY - Denies shortness of breath or wheezing CARDIOVASCULAR - Denies palpitations or chest pain GASTROINTESTINAL - Denies nausea, vomiting, diarrhea, constipation GENITOURINARY - Denies dysuria, frequency of urination, incontinence of urine MUSCULOSKELETAL - Denies joint or muscle pain NEUROLOGICAL - Denies localized numbness or weakness PSYCHIATRIC - Denies depression or anxiety ENDOCRINE - Denies heat or cold intolerance, weight loss or gain HEMATO-IMMUNOLOGIC - Denies excessive bleeding with cuts SOCIAL HISTORY: Alcohol Use - occasionally not while Smoking - denies smoking Diet - Keto Lifestyle - single Exercise - minimal Seat Belt Use - always 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 01/24/2021 Diagnostic laparoscopy right salpingectomy, removal of ectopic ; Rodrigo Rojas MD - PHYSICAL EXAM BP- 116/80 Sitting, Right arm, regular cuff Weight- 195.15872 lbs Height- 64 inch BMI:[id number] CONSTITUTIONAL - NAD, well nourished, and well developed SKIN - No rash, lesions, or ulcers HEENT - Normocephalic, PERRLA, EOMI NECK - No nodes, no nuchal rigidity and thyroid normal size and texture LYMPH NODES - Palpation of lymph nodes in neck and groins within normal limits ABDOMEN - Without hepatosplenomegaly, distention, masses, rebound, or guarding; normal bowel sounds; no hernias EXTREMITIES - No edema or calf tenderness NEUROLOGICAL - Cranial nerves II-XII grossly intact PSYCHIATRIC - A and O to time, place, person, mood and affect External Genital Vagina - non-tender without lesions Urethra/Urethral Meatus - non-tender Bladder - non-tender Vagina - vaginal ospina are pink and moist without loss of rugae and no evidence of atrophy and small amount of blood in posterior vault. No active bleeding Cervix - without cervical motion tenderness and has normal size and features without evident lesions and Cervix closed Uterus - 5-6 cm in size, mobile and nontender Adnexa - clear without masses or tenderness ASSESSMENT/PLAN: 1. Ectopic , Unspecified Patient arrives with positive UPT. Exam with small amounts of blood in vagina, no active bleeding. Patient with mild pelvic cramping right greater than the left. History of right salpingectomy for right ectopic 01/2020 Ultrasound today with no IUP, thin endometrial stripe. Questionable mass on right ovary, suspicious for ectopic Educated patient on findings. Discussed diagnostic laparoscopy possible D&C with of unknown location, r/b/a discussed, patient states understanding and wishes to proceed. All questions answered consent was signed
[2021-05-26 20:16] VITALS: BP 114/68; BP 128/85; PULSE 96; RESP 18; TEMP 36.3; O2SAT 100
--- NOTE | 2021-05-26 20:23 | OP.PCM_ITS ---
Report of Operation Date of Procedure: 05/26/21 Pre-Operative Diagnosis: Suspected ectopic Post-Operative Diagnosis: Suspected right ovarian ectopic Surgery/Procedure Performed:: Diagnostic laparoscopy, removal of right ovarian ectopic, dilation and curettage Description of Surgical Findings:: Surgeon: Rodrigo Rojas MD Anesthesia: General EBL: 25 cc Urine output: 100 cc IV fluids: 1200 cc Complications none Specimen: Suspected right ovarian ectopic, endometrial curettings Findings: Vaginal bleeding noted, minimal to no tissue or clots. Right fallopian tube absent. Right ovary with 2 to 3 cm mass suspicious for ectopic , after removal good hemostasis was noted and the rest of the right ovary was within normal limits. Left fallopian tube, left ovary within normal limits. Uterus with multiple fibroids. Anterior fibroid 2 cm subserosal, fundal 4 cm fibroid subserosal, 5 cm posterior fibroid subserosal noted. Abdominal survey with no other pathology noted. Mild to moderate amount of omental adhesions in upper abdomen. Consent: Patient with positive urine test and ultrasound findings suspicious for ectopic in need of diagnostic laparoscopy and dilation and curettage. Patient understands the risk of the procedure include but are not limited to visceral or vascular injury, prolonged hospitalization, blood loss and need for transfusion, reoperation. Patient stated understanding and wished to proceed. All questions were answered and consent was signed. Procedure: Patient was brought back to the OR where general anesthesia was found to be adequate. Patient was prepared and draped in a dorsolithotomy position with yellowfin stirrups. Weighted speculum was placed in the posterior aspect of the vagina and cervical dilators were used to dilate the cervix. Uterine manipulator was placed. Varies needle was inserted at the umbilicus and water safety test was passed. Abdomen was insufflated. 5 mm umbilical trocar was inserted on direct visualization. Laparoscope was inserted and above findings were noted. Left lower quadrant 5 mm trocar was inserted. Right lower quadrant 5 mm trocar was inserted under direct visualization. Using an atraumatic gras per and a monopolar L-hook suspicious right ovarian mass was dissected and removed. right lower quadrant 5 mm trocar was removed and 8 mm trocar was inserted under direct visualization at right lower quadrant in order to remove specimen. Right ovarian mass was sent to pathology. Using bipolar cautery and Mark hemostasis was achieved. Abdomen was suction irrigated. Abdomen was desufflated and trochars were removed under direct visualization, good hemostasis was noted. Trocar sites were closed in a subcuticular fashion. Uterine manipulator was removed and endometrial curettings were obtained, sent to pathology. Good hemostasis was noted. All counts were correct x2. Patient tolerated the procedure well and was brought to recovery in a stable condition.
--- NOTE | 2021-05-26 20:23 | PCM.DC ---
Discharge Instructions Diet Discharge Diet: No restrictions Activity Discharge Activity: Return to Normal Activity, May Drive, May Shower and - (No tub baths for 2 weeks) May resume sexual activity in: 4-6 weeks Lifting Restrictions: No lifting over 25 pounds for 2-3 Dressing / Incision Call your doctor if your incision/area has: Continuous Slow Oozing and Foul Smelling Discharge Call your doctor if you observe: Fever of 101 or Higher, Shortness of breath and Chest pain Follow Up Care Please Follow Up With: Rodrigo Rojas MD When: 2 weeks postoperatively Test Results: Test results from this visit will be discussed in further detail at your follow-up appointment, if applicable. Discharge Plan Admission Primary Reason for Your Visit: Suspected ectopic Attending Provider: Rodrigo Rojas Primary Care Provider: Wes Portillo Discharge Orders/Prescriptions Prescriptions: New oxycodone 5 mg Tablet 5 mg PO Q6H PRN PRN (Reason: Pain Score 6-10/10) 4 Days Qty: 16 RF: 0 Referrals / Follow Up: Wes Portillo MD [Primary Care Provider] - Disposition Disposition (needs filled in before D/C Order can be placed): Home, Self Care
[2021-05-26 20:30] VITALS: BP 114/68; BP 119/89; PULSE 87; RESP 18; O2SAT 100
[2021-05-26 20:45] VITALS: BP 109/86; BP 114/68; PULSE 82; RESP 18; O2SAT 99
[2021-05-26 21:00] VITALS: BP 113/70; BP 114/68; PULSE 86; RESP 18; TEMP 36.2; O2SAT 100
[2021-05-26] MEDS: Acetaminophen 500 MG Tablet 1000 MG PO (21:16)
[2021-05-26 21:22] VITALS: BP 114/68
--- NOTE | 2021-05-29 | FAL_PTH ---
PATIENT: VERÓNICA LING LOC: [facility] [place] U#:[id number] AGE/SX: 36/F ROOM: RE05/26/[address]: Dr. Rodrigo Rojas MD : 1985 BED: DIS: 05/26/2021 SPEC #: [id number] RECD: 05/29/21 12:41 STATUS: SHAWNA REZana #: [id number] MAGALY: 05/29/21 00:[address]: Rodrigo Rojas DEPT: SURGICAL PATHOLOGY RECD BY: Macario Wilkins ENTERED: 05/29/21 12:42 SP TYPE: ECTOPIC OTHR DR: Dr. Wes Portillo MD Tissues: A - ECTOPIC PREG B - Endometrium, NOS Procedures: Surgery Specimen Level IV HEADER OPERATION: Diagnostic laparoscopy, ectopic removal, D & C PRE-OP DIAGNOSIS: Suspected ectopic TISSUE SUBMITTED: A ? Suspected right ovarian ectopic, B ? Endometrial curettings MICROSCOPIC DIAGNOSIS A. Suspected right ovarian ectopic, biopsy: Fragments of corpus luteum. See comment. B. Endometrium, curettings: Strips of benign superficial endometrium with glandular and stromal breakdown. Strips of benign superficial endocervix. AM:sharee 05/30/2021 COMMENT A. Chorionic villi, trophoblastic cells and parts are not present. Clinical correlation is suggested. Reference is made to the patient's right fallopian tube, salpingectomy ([id number]) in which changes of ectopic were identified. MICROSCOPIC DESCRIPTION Slides are reviewed. GROSS DESCRIPTION A - Received in fixative is one container labeled with the patient's name and designated suspected right ovarian ectopic. The specimen consists of multiple irregular fragments of iac-lcpbytamx-ygczvx tissue that in aggregate measure 2 x 1.5 x 0.5 cm. The two larger pieces are bisected. The entire specimen is submitted in one cassette. B - Received in fixative is one container labeled with the patient's name and designated endometrial curettings. The specimen consists of multiple fragments of hemorrhagic tissue mixed with mucoid tissue that in aggregate measure 3 x 2.5 x 0.2 cm. The specimen is totally submitted in one cassette. / MAYDA:sharee 05/29/21 TC:5 CPT: 15543 x2
[2021-05-29 22:06] LABS: Chlamydia By Nucleic Acid AMP Negative (Negative)
[2021-05-30 11:54] LABS: Gonococcus By Nucleic Acid AMP Negative (Negative)
== END 2021-05-26 21:45 | disposition home or self-care (01) ==
LOC: AC 15:13
PROVIDERS: PCP Family Medicine; Visit Provider Obstetrics & Gynecology
PROC: 10T24ZZ Resection of Products of Conception, Ectopic, Percutaneous Endoscopic Approach (ICD-10-PCS; CPT 59150; principal; 2021-05-26 17:30)
DX: N93.9 Abnormal uterine and vaginal bleeding, unspecified (principal); N83.9 Noninflammatory disorder of ovary, fallopian tube and broad ligament, unspecified; D25.2 Subserosal leiomyoma of uterus; K66.0 Peritoneal adhesions (postprocedural) (postinfection); Z90.79 Acquired absence of other genital organ(s); Z87.59 Personal history of other complications of pregnancy, childbirth and the puerperium
CPT/HCPCS: 00840; 58662; 36415; 80053; 84702; 85027; 85610; 85730; 86850; 86900; 86901; 87426; 87491; 87591; 88305; J7120; J2405

== ENCOUNTER → 2021-06-02 12:02 | Outpatient (CLI) | payer OTHER, SELFPAY ==
[2021-06-02 13:27] LABS: hCG Titer Quant., Serum 53 mIU/mL (1-3)
== END ==
PROVIDERS: PCP Family Medicine; Visit Provider Obstetrics & Gynecology
DX: O02.1 Missed abortion (principal); Z3A.00 Weeks of gestation of pregnancy not specified
CPT/HCPCS: 36415; 84702

== ENCOUNTER → 2021-06-12 11:34 | Outpatient (CLI) | payer OTHER, SELFPAY ==
[2021-06-12 14:12] LABS: hCG Titer Quant., Serum 3 mIU/mL (1-3)
== END ==
PROVIDERS: PCP Family Medicine; Visit Provider Obstetrics & Gynecology
DX: O00.90 Unspecified ectopic pregnancy without intrauterine pregnancy (principal); Z3A.00 Weeks of gestation of pregnancy not specified
CPT/HCPCS: 36415; 84702

== ENCOUNTER 2021-07-21 14:34 | Outpatient (CLI) | payer OTHER, SELFPAY ==
[2021-07-21 18:15] LABS: Absolute Lymphocyte Count 1.72 X10^3/uL (0.83-4.51); Absolute Neutrophil Count 4.5 X10^3/uL (2.0-7.7); Basophil# 0.03 X10^3/uL; Basophil% 0.4 % (0-1); Eosinophil# 0.02 X10^3/uL; Eosinophils% 0.3 % (0-5); Hematocrit 34.4 % (37-47); Hemoglobin 11.5 g/dL (12.0-15.0); Lymphocyte # 1.72 X10^3/ul (0.83-4.51); Lymphocyte % 25.6 % (19-41); Mean Corp Hgb Conc 33.4 g/dL (32-36); Mean Corpuscular Hgb 29.9 pg (27.0-32.0); Mean Corpuscular Volume 89.6 fL (81-99); Mean Platelet Vol. 10.2 fl (6.2-12.0); Monocyte# 0.41 X10^3/uL; Monocyte% 6.1 % (0-10); NRBC Flagged by Analyzer 0 % (0-5); Neutrophil # 4.51 X10^3/uL (2.7-7.7); Neutrophil % 67.3 % (47-70); Platelet Count 169 K/mm3 (150-450); RBC Distribution Width SD 42.8 fl (35.1-43.9); Red Blood Count 3.84 M/mm3 (4.2-5.4); White Blood Count 6.7 K/mm3 (4.4-11.0)
[2021-07-21 22:25] LABS: Chlamydia Trachomatis by PCR Negative (Negative); Neisserai gonorrhoeae by PCR Negative (Negative); Probe Check PASS; Sample Adequacy Control PASS; Specimen Processing Control PASS
[2021-07-24 09:23] LABS: HIV - WCH Non-Reactive (Nonreactive); Hepatitis B Surface Antigen Non-Reactive (Nonreactive); Hepatitis C Antibody Non-Reactive (Nonreactive); Rubella IgG Reactive (Nonreactive); Syphilis Antibodies Non-reactive
== END 2021-07-21 23:59 | disposition short-term general hospital (02) ==
LOC: WOBLAB 14:36
PROVIDERS: PCP Family Medicine; Visit Provider Obstetrics & Gynecology
DX: O26.21 Pregnancy care for patient with recurrent pregnancy loss, first trimester (principal); Z3A.00 Weeks of gestation of pregnancy not specified
CPT/HCPCS: 36415; 85025; 86703; 86762; 86780; 86803; 87086; 87088; 87340; 87491; 87591

== ENCOUNTER → 2021-12-01 | Outpatient (CLI) | payer OTHER, SELFPAY ==
[2021-12-01 15:43] LABS: Red Blood Cells-Urine 0 SEEN /hpf (0-5); White Blood Cells 0 SEEN /hpf (0-5)
[2021-12-01 15:46] LABS: Color, Urine Yellow (Yellow); Glucose, Dipstick Normal (Normal); Ketone-Dipstick Negative (Negative); Leukocyte Esterase-Dipstick Negative /ul (Negative); Nitrite-Dipstick Negative (Negative); Occult Blood-Urine Negative /ul (Negative); Protein-Dipstick Negative (Negative); Specific Gravity, Urine 1.015 (1.002-1.030); Urine Bilirubin Dipstick Negative (Negative); Urine Clarity Clear (Clear); Urine Urobilinogen Normal (Normal)
[2021-12-01 16:00] LABS: Squamous Epithelial Cells - UA 0-5 SEEN /hpf (5-10)
[2021-12-01 16:01] LABS: Bacteria 1+ /hpf (None Seen); Mucous, Urine RARE /hpf (<or=2+)
== END | disposition home or self-care (01) ==
LOC: LAB.FUTURE 16:07
PROVIDERS: PCP Family Medicine; Visit Provider Obstetrics & Gynecology
DX: R35.0 Frequency of micturition (principal); M54.50 Low back pain, unspecified
CPT/HCPCS: 81001; 87086; 87088

== ENCOUNTER → 2021-12-08 | Outpatient (CLI) | payer OTHER, SELFPAY ==
[2021-12-08 13:35] LABS: Hematocrit 29.2 % (37-47); Hemoglobin 9.9 g/dL (12.0-15.0); Mean Corp Hgb Conc 33.9 g/dL (32-36); Mean Corpuscular Hgb 30.4 pg (27.0-32.0); Mean Corpuscular Volume 89.6 fL (81-99); Mean Platelet Vol. 9.7 fl (6.2-12.0); Platelet Count 179 K/mm3 (150-450); RBC Distribution Width CV 13.3 % (11.6-14.6); RBC Distribution Width SD 43.8 fl (35.1-43.9); Red Blood Count 3.26 M/mm3 (4.2-5.4); White Blood Count 6.2 K/mm3 (4.4-11.0)
[2021-12-08 13:44] LABS: Glucose Challenge Gest 1H 50g 101 mg/dL (70-140)
== END | disposition home or self-care (01) ==
LOC: WOBLAB 13:10
PROVIDERS: PCP Family Medicine; Visit Provider Obstetrics & Gynecology
DX: Z34.82 Encounter for supervision of other normal pregnancy, second trimester (principal)
CPT/HCPCS: 36415; 82950; 85027

== ENCOUNTER → 2022-01-19 | Outpatient (CLI) | payer OTHER, SELFPAY ==
--- NOTE | 2022-01-19 15:05 | VDLE_ITS ---
Reason For Study: Pain RIGHT LEFT GSV is normal. GSV is normal. CFV is compressible, spontaneous, phasic, CFV is compressible, spontaneous, phasic, competent and demonstrates normal competent, and demonstrates normal augmentation. augmentation. FV is compressible, spontaneous, phasic, FV is compressible, spontaneous, phasic, competent and demonstrates normal competent and demonstrates normal augmentation. augmentation. POP V is compressible, spontaneous, phasic, POP V is compressible, spontaneous, phasic, competent and demonstrates normal competent and demonstrates normal augmentation. augmentation. T/P Trunk is compressible. T/P Trunk is compressible. PTV is compressible. PTV is compressible. RT PerV is compressible. LT PerV is compressible. Procedure This is a venous duplex using B-mode, color flow and spectral Doppler. Exam performed in department. A preliminary report was called and/or faxed to Ghulam Rojas. VL/Venous Duplex US - Diogenes Extrem Interpretation Summary No evidence for acute deep venous thrombosis bilateral lower extremities with p atent and compressible bilateral great saphenous veins. Ordering Physician: Rodrigo Rojas Referring Physician: Wes Portillo Performed By: Faye Pollack RVT
== END | disposition home or self-care (01) ==
LOC: CVS 15:03
PROVIDERS: PCP Family Medicine; Referring Provider Obstetrics & Gynecology; Visit Provider Obstetrics & Gynecology
DX: M79.662 Pain in left lower leg (principal); Z86.711 Personal history of pulmonary embolism
CPT/HCPCS: 93970

== ENCOUNTER → 2022-02-08 | Outpatient (CLI) | payer OTHER, SELFPAY | END | disposition home or self-care (01) | LOC: LABSPEC 11:32 | PROVIDERS: PCP Family Medicine; Visit Provider Obstetrics & Gynecology | DX: Z36.85 Encounter for antenatal screening for Streptococcus B (principal) | CPT/HCPCS: 87081 ==

== ENCOUNTER 2022-02-13 13:05 | Outpatient (CLI) | payer OTHER, SELFPAY ==
[2022-02-13 13:09] VITALS: BMI 39.0
[2022-02-13 13:13] VITALS: BP 124/72; PULSE 96
--- NOTE | 2022-02-13 17:50 | PCM.PN.BLA ---
Progress Note 36-year-old at 37/3 weeks presenting for routine NST. No complaints today. NST reactive. 135/mod svetlana/+accel/no decel. [place] quiet. BP wnl. Discharge home with 1w follow up.
== END 2022-02-13 13:55 | disposition home or self-care (01) ==
LOC: WPOUT 13:08 → WP 13:08
PROVIDERS: PCP Family Medicine; Visit Provider Student in an Organized Health Care Education/Training Program
DX: O47.1 False labor at or after 37 completed weeks of gestation (principal); Z3A.37 37 weeks gestation of pregnancy; Z79.82 Long term (current) use of aspirin
CPT/HCPCS: 59025

== ENCOUNTER 2022-02-27 19:10 | Inpatient (IN) | payer OTHER, SELFPAY ==
[2022-02-28] VITALS (40 sets, daily range): BP systolic 92–146; BP diastolic 42–77; PULSE 72–108; RESP 14–20; TEMP 36.1–36.6; O2SAT 94–100; BMI 39.5
--- NOTE | 2022-02-28 | FALS_PTH ---
PATIENT: VERÓNICA LING LOC: [facility] U#:[id number] AGE/SX: 36/F ROOM: WP007 RE02/27/[address]: Dr. Rodrigo Rojas MD : 1985 BED: 1 DIS: 03/02/2022 SPEC #: [id number] RECD: 02/28/22 17:20 STATUS: SHAWNA REQ #: [id number] MAGALY: 02/28/22 00:[address]: Rodrigo Rojas DEPT: SURGICAL PATHOLOGY RECD BY: Macario Wilkins ENTERED: 03/01/22 08:51 SP TYPE: FALL TUBES OTHR DR: Dr. Jannet Escalona MD Tissues: Fallopian tube Procedures: Surgery Specimen Level II HEADER OPERATION: section PRE-OP DIAGNOSIS: Tubal TISSUE SUBMITTED: Fallopian tube MICROSCOPIC DIAGNOSIS Fallopian tube, salpingectomy: Fallopian tube, no pathologic diagnosis. MICROSCOPIC DESCRIPTION Slides are reviewed. GROSS DESCRIPTION Received in fixative is one container labeled with the patient's name and designated bilateral fallopian tubes. The specimen consists of a fallopian tube including fimbrial end measuring 9.5 cm in length and 1.0 cm in diameter. Sections reveal unremarkable cut surfaces. Traffic Controller Cable sections are submitted in one cassette. / SJ:cc 03/01/22 TC:4 CPT:[id number]
--- NOTE | 2022-02-28 00:14 | PCM.HP.BLA ---
History and Physical Date of Admission: 02/27/22 HPI: 36-year-old G6, P0 at 39/4 weeks, HOLLI 03/03/2022 by LMP, admitted for elective induction of labor at term. Reports movement. Denies leaking of fluid, vaginal bleeding, regular contractions. Denies headache, vision changes, chest pain/shortness of breath, nausea or vomiting, diarrhea or constipation. Denies fevers or chills. 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 History of lower extremity DVT in 2015, not estrogen related. 2. Factor V heterozygous 3. MTHFR heterozygous Surgical history: 1. Right salpingectomy laparoscopic January 2021 2. Diagnostic laparoscopy, removal of right ovarian ectopic, dilation and curettage May 2021 Allergies: No known drug allergies Social history: Denies tobacco, alcohol, drug use Family history: Noncontributory Medications: 1. Lovenox 40 mg daily 2. vitamin 3. Aspirin 81 mg daily Review of system: Negative otherwise stated above Physical exam: Vitals pending General: Resting in bed in no acute distress HEENT: Normal cephalic/atraumatic, PERRLA Cardiac: Regular rate Respiratory: No increased effort Abdomen: Soft, nontender, gravid, no right upper quadrant pain Cervical exam: Pending Extremities: Minimal edema Musculoskeletal: Strength 5/5 throughout all extremities Neurologic: No focal deficits, cranial nerves II through XII grossly intact labs GBS neg 02/08 Glucola 101 Gonorrhea/chlamydia negative Hepatitis C negative Hepatitis B negative HIV negative Syphilis negative Rubella immune AB+ Admission labs: Pending NST: 145/mod svetlana/+accel/no decel [place]: quiet Assessment & Plan Assessment/Plan (1) Elective induction of labor planned: PLAN: 36-year-old G6, P0 at 39/4 weeks admitted for induction of labor at term. Complicated by factor V heterozygous and MTHFR heterozygous with history of DVT on Lovenox, recurrent early loss. ?Admit for induction of labor ? Cytotec vaginally 25 mcg every 4 hours ? GBS negative ? Last Lovenox dose on Sunday 02/25. To go home with for at least 6 weeks . ? Epidural at any time (2) Factor 5 Leiden mutation, heterozygous: (3) Heterozygous for MTHFR gene mutation: (4) History of DVT of lower extremity:
[2022-02-28] MEDS: Lactated Ringers 1,000 ML 50 ML IV (00:30)
[2022-02-28 00:44] LABS: Absolute Lymphocyte Count 1.77 X10^3/uL (0.83-4.51); Absolute Neutrophil Count 4.5 X10^3/uL (2.0-7.7); Basophil# 0.02 X10^3/uL; Basophil% 0.3 % (0-1); Eosinophil# 0.02 X10^3/uL; Eosinophils% 0.3 % (0-5); Hematocrit 33.8 % (37-47); Hemoglobin 11.6 g/dL (12.0-15.0); Lymphocyte # 1.77 X10^3/ul (0.83-4.51); Lymphocyte % 25.9 % (19-41); Mean Corp Hgb Conc 34.3 g/dL (32-36); Mean Corpuscular Hgb 30.7 pg (27.0-32.0); Mean Corpuscular Volume 89.4 fL (81-99); Mean Platelet Vol. 9.8 fl (6.2-12.0); Monocyte# 0.49 X10^3/uL; Monocyte% 7.2 % (0-10); NRBC Flagged by Analyzer 0 % (0-5); Neutrophil # 4.48 X10^3/uL (2.7-7.7); Neutrophil % 65.6 % (47-70); Platelet Count 164 K/mm3 (150-450); RBC Distribution Width CV 13.7 % (11.6-14.6); RBC Distribution Width SD 44.4 fl (35.1-43.9); Red Blood Count 3.78 M/mm3 (4.2-5.4); White Blood Count 6.8 K/mm3 (4.4-11.0)
--- NOTE | 2022-02-28 07:09 | PN.OBGYN_ITS ---
Subjective Subjective Patient comfortable. Got some rest overnight. Objective Data Objective Data Vital Signs: Vital Signs Temp Pulse BP Pulse Ox 97.5 F L 96 108/63 94 02/28/22 01:54 02/28/22 01:55 02/28/22 01:55 02/28/22 01:55 Weight: 104.5 kg Body Mass Index (BMI) 39.5 Lab / Micro Data Attestation: I reviewed the patient's lab results. Result Diagrams: 02/28/22 00:30 Labs: Laboratory Results - last 24 hr 02/28/22 00:30: WBC 6.8, RBC 3.78 L, Hgb 11.6 L, Hct 33.8 L, MCV 89.4, MCH 30.7, MCHC 34.3, RDW Std Deviation 44.4 H, RDW Coeff of Hollis 13.7, Plt Count 164, MPV 9.8, Immature Gran % (Auto) 0.700, Neut % (Auto) 65.6, Lymph % (Auto) 25.9, [place] % (Auto) 7.2, Eos % (Auto) 0.3, Baso % (Auto) 0.3, Absolute Neuts (auto) 4.5, Absolute Lymphs (auto) 1.77, Nucleated RBC % 0 02/28/22 00:30: Blood Type A POSITIVE, Antibody Screen NEGATIVE Micro: Microbiology 02/28/22 00:30 Nasal Secretion SARS-CoV-2 Antigen (Rapid) - Final Physical Exam Const alert, oriented x3 and no apparent distress HEENT normocephalic Resp normal respiratory effort Cardio regular rate GI soft to palpation and non-tender Inspection: gravid Extremity no pedal edema Neuro moves all extremities, no focal motor deficits and no sensory deficits noted Psych mental status grossly normal and affect normal Assessment & Plan (1) Breech presentation: PLAN: G6, P0 at 39/4 weeks admitted now with diagnosed breech presentation. Complicated by factor V and MTHFR heterozygous with history of DVT in 2016. ?Breech presentation confirmed on ultrasound this morning. ?Patient continues to desire attempt of external cephalic version. ?Consents for ECV and section were signed overnight. ?Plan for epidural prior to ECV. ?Plan for ECV this afternoon. Patient to have breakfast, then be n.p.o. ?NST now, pending. NST prior to epidural placement and ECV this afternoon as well. ?All questions answered. (2) Factor 5 Leiden mutation, heterozygous: (3) Heterozygous for MTHFR gene mutation: (4) History of DVT of lower extremity:
[2022-02-28] MEDS: LACTATED RINGERS 500 ML 999 ML IV (15:31)
[2022-02-28] MEDS: fentaNYL-bupivacaine (epidural) 100 ML BAG EPIDURAL (17:20)
[2022-02-28] MEDS: Terbutaline 1 MG/ML Vial 0.25 MG SC (17:27)
[2022-02-28] MEDS: Lactated Ringers 1,000 ML 200 ML IV (17:45)
[2022-02-28] MEDS: Acetaminophen 500 MG Tablet PO (17:55)
--- NOTE | 2022-02-28 17:56 | PN.OBGYN_ITS ---
Subjective Subjective Comfortable with epidural. Objective Data Objective Data Vital Signs: Vital Signs Temp Pulse BP Pulse Ox 97.2 F L 108 H 146/66 H 100 02/28/22 16:39 02/28/22 17:26 02/28/22 17:21 02/28/22 17:26 Weight: 230 lb 6.129 oz Body Mass Index (BMI) 39.5 Intake & Output: Intake and Output for Last 24 Hours 02/26/22 02/27/22 02/28/22 23:59 23:59 23:59 Intake Total 1500.00 / 1500.00 Balance 1500.00 / 1500.00 Lab / Micro Data Result Diagrams: 02/28/22 00:30 Labs: Laboratory Results - last 24 hr 02/28/22 00:30: WBC 6.8, RBC 3.78 L, Hgb 11.6 L, Hct 33.8 L, MCV 89.4, MCH 30.7, MCHC 34.3, RDW Std Deviation 44.4 H, RDW Coeff of Hollis 13.7, Plt Count 164, MPV 9.8, Immature Gran % (Auto) 0.700, Neut % (Auto) 65.6, Lymph % (Auto) 25.9, [place] % (Auto) 7.2, Eos % (Auto) 0.3, Baso % (Auto) 0.3, Absolute Neuts (auto) 4.5, Absolute Lymphs (auto) 1.77, Nucleated RBC % 0 02/28/22 00:30: Blood Type A POSITIVE, Antibody Screen NEGATIVE Micro: Microbiology 02/28/22 00:30 Nasal Secretion SARS-CoV-2 Antigen (Rapid) - Final Physical Exam Const alert, oriented x3, no apparent distress, average body habitus, healthy appearing and well nourished HEENT normocephalic and moist oral mucous membranes Eyes PERRL Neck full ROM GI GI Narrative: Soft, nontender, gravid Narrative: Bedside ultrasound reveals breech presentation Extremity normal to inspection, full ROM and no clubbing, cyanosis or edema Neuro moves all extremities and no focal motor deficits Psych mental status grossly normal, affect normal, speech normal and activity/motor behavior normal Assessment & Plan (1) : PLAN: Patient seen and examined. Discussed external cephalic version risk- benefit alternatives including emergency patient states understanding and wished to proceed. All questions were answered and consent was signed. Bedside ultrasound revealed breech presentation. Terbutaline given. Patient comfortable with epidural. Under ultrasound guidance external cephalic version attempted, heart rate monitoring throughout process. Baby remained breech. Discussed results with patient, patient elects for primary section for breech presentation. Again risk benefits alternatives of primary section discussed. Patient states understanding wish to proceed. All questions were answered and consent was signed. For 2 g Ancef and 500 mg of azithromycin for infection prophylaxis. For now
[2022-02-28] MEDS: Sodium Citrate/Citric Acid 30 ML UDC PO (17:57)
[2022-02-28] MEDS: Cefazolin 2 GM in 0.9% Normal Saline 100 ML IV (18:01)
--- NOTE | 2022-02-28 18:57 | EX.PCM.OBRPT ---
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 Right fallopian tube absent. Left fallopian tube, uterus within normal limits. Consent: Patient arrived for induction of labor found to be breech desired external cephalic version, version attempted and failed patient elects for primary section for breech presentation and desires permanent sterilization via tubal ligation. Patient understands the risk of the procedure include but are not limited to visceral or vascular injury, prolonged hospitalization, blood loss and need for transfusion, reoperation. Patient understands tubal ligation is a permanent procedure, discussed regret. Patient states understanding and wished to proceed. All questions were answered and consent was signed. Procedure: Patient was brought back to the OR where epidural anesthesia was found to be adequate. 2 g of Ancef and 500 mg of azithromycin were given for infection prophylaxis. Patient was prepared and draped in a supine position with leftward tilt. A Pfannenstiel incision was made at the skin with a scalpel. The incision was carried down the fascia with scalpel. The fascia was excised and extended laterally. The inferior aspect of the fascia was grasped with a clamp and the underlying rectus and pyramidalis muscle were dissected off sharply with Almanzar scissors. In a similar aspect the superior aspect of the fascia was grasped with a clamp and the underlying rectus muscle was dissected off sharply. Rectus muscle was dissected the midline down to the level of pubic symphysis. Preperitoneal fatty tissue was noted. Tendon was entered bluntly. Peritoneum was extended superiorly and inferiorly with good visualization of bladder. Bladder blade was inserted and vesicouterine peritoneum was identified. Low transverse hysterotomy incision was made. Hand was placed into the incision and baby was delivered in standard breech fashion. Baby is handed off to nursing. Placenta was delivered via cord traction and fundal massage. Uterus was exteriorized and wiped out with dry laparotomy sponge in order to remove remaining placental membranes. IV oxytocin was initiated in order to facilitate uterine contractions. Uterus was closed in a continuous running fashion. Good hemostasis was noted. Left loping tube was identified to the fimbriae and the mesosalpinx was cut and cauterized with LigaSure device. Left fallopian tube was transected and sent to pathology. Good hemostasis was noted at surgical site. Uterus was placed back into the abdominal cavity and incision was reinspected, good hemostasis was noted. Fascia was closed in a continuous running fashion. Subcutaneous irrigation was performed and good hemostasis was noted. Skin was closed in a subcuticular fashion. All counts were correct x2. Patient tolerated the procedure well and was brought to recovery in a stable condition
[2022-02-28] MEDS: Oxytocin 30 units/NS 500 ml 30 UNITS/500 ML IV.SOLN 167 UNITS IV (19:20)
[2022-02-28] MEDS: Ketorolac 30 MG/ML Syringe IV (19:40)
[2022-02-28] MEDS: 0.9% Saline Lock 10 ML Syringe IV (19:40)
[2022-02-28 20:47] LABS: Pathology Specimen OB SEE PATHOLOGY REPORT
[2022-02-28] MEDS: Lactated Ringers 1,000 ML 100 ML IV (22:45)
[2022-02-28] MEDS: Ondansetron 4 MG/2 ML Vial IV (22:52)
[2022-02-28] MEDS: Acetaminophen 500 MG Tablet 1000 MG PO (23:32)
[2022-03-01] VITALS (7 sets, daily range): BP systolic 86–109; BP diastolic 41–65; PULSE 55–95; RESP 16–18; TEMP 36.2–37; O2SAT 96–98
[2022-03-01] MEDS: Ketorolac 30 MG/ML Syringe IV ×3 (01:36→14:07)
[2022-03-01] MEDS: DiphenhydrAMINE 25 MG Capsule PO (01:36)
[2022-03-01] MEDS: 0.9% Saline Lock 10 ML Syringe IV ×4 (01:36→14:10)
[2022-03-01] MEDS: Enoxaparin 40 MG/0.4 ML Syringe SC (06:19)
[2022-03-01] MEDS: Acetaminophen 500 MG Tablet 1000 MG PO ×3 (06:20→18:31)
[2022-03-01 06:38] LABS: Hematocrit 29.2 % (37-47); Hemoglobin 10.2 g/dL (12.0-15.0); Mean Corp Hgb Conc 34.9 g/dL (32-36); Mean Corpuscular Hgb 31.4 pg (27.0-32.0); Mean Corpuscular Volume 89.8 fL (81-99); Mean Platelet Vol. 9.8 fl (6.2-12.0); Platelet Count 115 K/mm3 (150-450); RBC Distribution Width CV 14.1 % (11.6-14.6); RBC Distribution Width SD 45.7 fl (35.1-43.9); Red Blood Count 3.25 M/mm3 (4.2-5.4); White Blood Count 9.3 K/mm3 (4.4-11.0)
--- NOTE | 2022-03-01 07:30 | PN.OBGYN_ITS ---
Subjective Subjective Postop day 1. Sore. Up ambulating and voiding. Patient in bathroom, on toilet waiting for pad. Objective Data Objective Data Vital Signs: Vital Signs Temp Pulse Resp BP Pulse Ox O2 Del Method 97.9 F 78 16 97/44 L 98 Room Air 03/01/22 03:16 03/01/22 06:31 03/01/22 06:31 03/01/22 03:16 03/01/22 06:31 03/01/22 06:31 Oxygen Delivery Method Room Air Weight: 104.5 kg Body Mass Index (BMI) 39.5 Intake & Output: Intake and Output for Last 24 Hours 02/27/22 02/28/22 03/01/22 23:59 23:59 23:59 Intake Total 3330.85 / 3330.85 455 / 455 Output Total 1400 / 1400 400 / 400 Balance 1930.85 / 1930.85 55 / 55 Lab / Micro Data Attestation: I reviewed the patient's lab results. Result Diagrams: 03/01/22 06:25 Labs: Laboratory Results - last 24 hr 03/01/22 06:25: WBC 9.3, RBC 3.25 L, Hgb 10.2 L, Hct 29.2 L, MCV 89.8, MCH 31.4, MCHC 34.9, RDW Std Deviation 45.7 H, RDW Coeff of Hollis 14.1, Plt Count 115 L, MPV 9.8 Micro: Microbiology 02/28/22 00:30 Nasal Secretion SARS-CoV-2 Antigen (Rapid) - Final Physical Exam Const alert, oriented x3 and no apparent distress HEENT normocephalic Head and Scalp: atraumatic Neck full ROM Resp normal respiratory effort Cardio regular rate GI GI Narrative: Unable to complete as patient was in bathroom on toilet. Back/Spine normal ROM Extremity normal to inspection Extremity Narrative: Minimal pedal edema Neuro no focal motor deficits and no sensory deficits noted Psych mental status grossly normal and affect normal Assessment & Plan (1) Delivery by section: PLAN: Postop day 1 status post primary section for breech presentation after failed external cephalic version. Pain controlled. Lochia minimal. Breast-feeding going well. Complicated by history of DVT and heterozygous MTHFR/factor V Leiden. Restarted on Lovenox 40 mg daily, will need on home- going for 6 weeks. Likely home tomorrow (2) Heterozygous for MTHFR gene mutation: (3) History of DVT of lower extremity: (4) Factor 5 Leiden mutation, heterozygous: (5) state:
[2022-03-01] MEDS: Senna/Docusate Sodium 1 Tablet PO (10:29)
[2022-03-01] MEDS: oxyCODONE 5 MG Tablet PO (19:18)
[2022-03-01] MEDS: Ibuprofen 600 MG Tablet PO (19:19)
--- NOTE | 2022-03-01 21:23 | NURSING ---
2116- Pt. still reporting increased pain when moving around. No pain medications due at this time. This RN offered heating K-pad or ice pack to pt, but pt reports feeling okay for now. Pt. encouraged to call out for RN if further pain management is needed. Call light and phone within reach.
[2022-03-02] MEDS: Ibuprofen 600 MG Tablet PO ×4 (00:45→19:10)
[2022-03-02] MEDS: Acetaminophen 500 MG Tablet 1000 MG PO ×4 (00:45→19:10)
[2022-03-02 01:57] VITALS: BP 101/46; PULSE 74; RESP 16; TEMP 36.3; O2SAT 98
[2022-03-02] MEDS: oxyCODONE 5 MG Tablet PO (02:35)
--- NOTE | 2022-03-02 07:36 | PCM.DC.BLA ---
Discharge Summary Date of Admission: 02/27/22 Date of Discharge: 03/02/22 Summary: Patient arrived on 02/27/2022 for induction of labor at term with AMA. Noted to be breech. Patient elected for external cephalic version performed on 02/28/2022, failed version. Patient elects for primary section which was performed on 02/28/2022. Routine postoperative recovery. Patient discharged home on 03/02/2022 on Lovenox with history of DVT and factor V heterozygous. Meaningful Use Info Meaningful Use Diagnoses (Choose all that apply): None applicable Discharge Plan Admission Admit Date/Time: 02/27/22 19:10 Primary Reason for Your Visit: Induction of labor Attending Provider: Rodrigo Rojas Primary Care Provider: Jannet Escalona Instructions Additional Instructions / Restrictions: Regular diet. Okay to shower. No tub baths for 2 weeks. No intercourse for 4 to 6 weeks. No lifting over 25 pounds for 2 to 3 weeks. Call if fevers, chills, chest pain, shortness of breath. Follow-up 2 weeks postoperatively Discharge Orders/Prescriptions Prescriptions: New oxycodone 5 mg Tablet 5 mg PO Q6H PRN (Reason: pain (scale score 7-10)) 4 Days Qty: 16 0RF Continued Prenatabs FA 29-1 mg Tablet 1 tab PO DAILY enoxaparin [Lovenox] 40 mg/0.4 mL Syringe 40 mg SUBCUT DAILY Discontinued ferrous sulfate [iron] 325 mg (65 mg iron) Tablet 325 mg PO DAILY aspirin 81 mg Capsule 81 mg PO DAILY Referrals / Follow Up: Jannet Escalona MD [Primary Care Provider] - Disposition Disposition (needs filled in before D/C Order can be placed): Home, Self Care
--- NOTE | 2022-03-02 07:38 | PCM.PN.OB ---
Subjective Subjective No overnight complaints. Pain well controlled. Objective Data Objective Data Vital Signs: Vital Signs Temp Pulse Resp BP Pulse Ox O2 Del Method 97.3 F L 74 16 101/46 L 98 Room Air 03/02/22 01:57 03/02/22 01:57 03/02/22 01:57 03/02/22 01:57 03/02/22 01:57 03/02/22 01:57 Oxygen Delivery Method Room Air Weight: 230 lb 6.129 oz Body Mass Index (BMI) 39.5 Intake & Output: Intake and Output for Last 24 Hours 02/28/22 03/01/22 03/02/22 23:59 23:59 23:59 Intake Total 3330.85 / 3330.85 455 / 455 Output Total 1400 / 1400 1200 / 1200 Balance 1930.85 / 1930.85 -745 / -745 Lab / Micro Data Result Diagrams: 03/01/22 06:25 Micro: Microbiology 02/28/22 00:30 Nasal Secretion SARS-CoV-2 Antigen (Rapid) - Final Physical Exam Const alert, oriented x3, no apparent distress, average body habitus, healthy appearing and well nourished HEENT normocephalic and moist oral mucous membranes Eyes PERRL Neck full ROM Resp normal respiratory effort, no retractions and no use of accessory muscles GI GI Narrative: Bandage clean dry and intact Back/Spine no CVA tenderness, normal ROM and normal to inspection Extremity normal to inspection, full ROM and no clubbing, cyanosis or edema Neuro moves all extremities and no focal motor deficits Psych mental status grossly normal, affect normal, speech normal and activity/motor behavior normal Assessment & Plan (1) Delivery by section: PLAN: Postoperative day 2 status post primary section for breech. Pain well controlled. Okay to discharge home today. History of DVT and factor V heterozygous to be discharged home on Lovenox
[2022-03-02 08:39] VITALS: BP 93/55; PULSE 67; RESP 16; TEMP 36.6; O2SAT 97
[2022-03-02] MEDS: Enoxaparin 40 MG/0.4 ML Syringe SC (10:57)
[2022-03-02] MEDS: Senna/Docusate Sodium 1 Tablet PO (10:58)
[2022-03-02 14:00] VITALS: BP 118/69; PULSE 89; RESP 16; TEMP 36.4; O2SAT 98
[2022-03-02 18:00] VITALS: BP 110/64; PULSE 66; RESP 16; TEMP 36.2; O2SAT 96
--- NOTE | 2022-03-02 22:06 | NURSING ---
2100 Patient leaving unit with RN and in [facility] pt lap with her parents.
== END 2022-03-02 21:00 | disposition home or self-care (01) | DRG 784 ==
PROVIDERS: Student in an Organized Health Care Education/Training Program; Admitting Provider Obstetrics & Gynecology; PCP Pediatrics; Visit Provider Obstetrics & Gynecology
DX: O32.1XX0 Maternal care for breech presentation, not applicable or unspecified (principal); O99.12 Other diseases of the blood and blood-forming organs and certain disorders involving the immune mechanism complicating childbirth; D68.51 Activated protein C resistance; Z30.2 Encounter for sterilization; O26.23 Pregnancy care for patient with recurrent pregnancy loss, third trimester; Z37.0 Single live birth; Z3A.39 39 weeks gestation of pregnancy; Z86.718 Personal history of other venous thrombosis and embolism; Z15.89 Genetic susceptibility to other disease
CPT/HCPCS: 59025; 59050; 76815; 85025; 85027; 86850; 86900; 86901; 87426; 88302; 99218; J7120; A4216; G0378; J2405

== ENCOUNTER → 2025-05-12 | Outpatient (CLI) | payer OTHER, SELFPAY ==
--- NOTE | 2025-05-12 07:56 | BI_ITS ---
EXAM: BI/SCRN MAMM (CAD)W/KAUR BILAT
== END | disposition home or self-care (01) ==
PROVIDERS: PCP Nurse Practitioner Family; Referring Provider Nurse Practitioner Family; Visit Provider Nurse Practitioner Family
DX: Z12.31 Encounter for screening mammogram for malignant neoplasm of breast (principal)
CPT/HCPCS: 77063; 77067